=== PATIENT | female | born 1985 | race Caucasian/White ===

== ENCOUNTER 2018-09-24 10:38 | Emergency (ER) | payer MEDICAID, OTHER ==
[2014-05-06 20:03] VITALS: BMI 41.1
[2018-09-24 12:09] LABS: SQUAMOUS EPITHIAL 2 /hpf (0-5); URINE BACTERIA OCC (<OCC); URINE BILIRUBIN NEGATIVE (NEGATIVE); URINE BLOOD 1+ (NEGATIVE); URINE CLARITY Clear (Clear); URINE COLOR Yellow (YELLOW); URINE GLUCOSE (UA) NORMAL (Normal); URINE LEUKOCYTE ESTERASE 1+ Leu/uL (Negative); URINE PROTEIN NEGATIVE (NEGATIVE); URINE UROBILINOGEN NORMAL mg/dL (0.2-1.0)
--- NOTE | 2018-09-24 13:01 | OBHP ---
Datetime: 09/24/2018 11:47 IP Adm Impression: , intrauterine ; No Active Labor; Intact Membranes IP Admit Plan: Observation/Evaluation Admit Comment, IP Provider: Ms. Pelayo is a 33 year old [id number] (5 terminations, 2 miscarriages) with an IUP at 33w5d by LMP with PRANAY 11/06/18 who presents for lower abdominal cramping since earlier this morning. Patient reports being constipated and had her last BM a week ago. Earlier this morning, patient was straining on the toilet and passed stool when these sharp pains began. She is unsure if these pains are from straining or from contractions. Patient reports the pain as sharp, on and off, and without radiation. Offers no other complaints at this time. Endorses movement, but denies v aginal bleeding and a gush of fluid per vagina, however states that for the past 2 days she feels he r underware wet on/off. Endorses mild shortness of breath but denies chest pain, dizziness, palpitati ons, dizziness. OB HX: 5 terminations, 2 miscarriages, 1 , 3 living children via DRAG DOWN Hx: LMP 01/30/18 Triad: 10 x regular x 5 days No history of HPV ovarian cysts or fibroids Paps have been normal per patient PMHx: denies PSHx: denies All: NKDA Social: Denies ETOH, tobacco and illicit drug use Fam hx: HTN, DM, cardiomyopathy in aunt, prostate CA in grandfather Meds: vitamins, stopped a week ago PE: see above A_P: 33 year old [id number] (5 terminations, 2 miscarriages) who presents at 33w5d likely with pains m ost likely secondary to constipation. Probable UTI NST reactive No UC's recorded or palpated Hx of delivery in the past - Observe - Evaluate with CEFM and TOCO for contractions - f/u UA - f/u BPP and measure CHESTER Patient seen, case reviewed and plan approved by Dr. Richardson. Rony Zeffren, PGY-1 Pt seen and examined with Dr. Yang and findings reviewed and agree with his POC Extremities - PN: Normal Abdomen - PN: Normal Back - PN: Normal Breast - PN: Not Done Lungs - PN: Normal Heart - PN: Normal Thyroid - PN: Not Done Neurologic - PN: Normal HEENT - PN: Normal General - PN: Normal Presentation-Admit: Vertex FHR - Baseline A Provider: 140 Membranes, Provider: Intact Comments, ACOG Physical Exam: Gen: AAOx3 in NAD, sitting up in mild discmfort in bed Cardio: RRR, no murmur appreciated Pulm: CTABL Abd: soft, nontender, fundal height 33 cm above pubic symphysis Ext: no calf tenderness, no erythema, mild swelling (Annotations: Data stored by CPN on behalf of user) Gestation - Est Wks by US: 34.1 Pool Provider: Negative Nitrazine Provider: Negative IP Hx Assessment: The History has been Reviewed and is Current EGA AdmitDate IP: 34.1 Vital Signs Provider: Reviewed; Within Normal Limits IP Chief Complaint: Signs/symptoms UTI; Maternal discomfort; evaluation NICHD Variability Prov Fetus A: Moderate 6-25bpm NICHD Accel Fetus A IP Provider: 10X10 FHR Category Provider Fetus A: Category I NICHD Decel Fetus A IP Provider: None Dilatation, Provider: 0 Effacement, Provider: 0
--- NOTE | 2018-09-24 14:15 | US ---
Indication: r/o active labor, measure CHESTER Comparison: None available Technique: Real-time ultrasound was performed through the pelvis. Findings: There is a single living fetus in cephalic presentation. Amniotic fluid volume is within normal limits. Posterior placenta. The placenta is not previa. There are no adnexal masses or cysts evident. Cervix length measures approximately 3.4 cm. The study was performed for emergent evaluation and the whole anatomic survey of the fetus was not performed. Measurements and calculations: Fetus has a composite sonographic age of 33 weeks 3 days. This calculation is based on the biparietal diameter, head circumference, abdominal circumference, and femur length. Estimated heart rate 137.2 beats per min. Estimated weight 2172 g. Amniotic fluid index: 12.9 cm, within normal limits. Biophysical profile: movements 2/2 breathing 2/2 tone 2/2 Amniotic fluid 2/2 Total score impression: /8 Impression: Single living fetus with a composite sonographic age of 33 weeks 3 days. Estimated heart rate 137.2 beats per min. Biophysical profile of 8 out of 8.
--- NOTE | 2018-09-24 16:13 | OBDCSUM ---
Datetime: 09/24/2018 14:43 Discharged to, Provider: Home Follow up at, Provider: Clinic Disch Instr Activity: Normal activity Disch Instr Diet: Regular Discharge Instructions, Provider: Routine instructions given Discharge Time: 09/24/2018 14:40 Follow up in weeks, Provider: Scheduled appointment Disch Referrals: None Disch Activity Restrictions: No exercising; No lifting; Minimize stair-climbing; No sexual activity; Nothing in vagina - [place], tampons, douche Discharge Comment, Provider: Ms. Pelayo is a 33 year old [id number] (5 terminations, 2 miscarriages) with an IUP at 33w5d by LMP with PRANAY 11/06/18 who presents for lower abdominal cramping since earlier this morning. Patient reports being constipated and had her last BM a week ago. Earlier this morning , patient was straining on the toilet and passed stool when these sharp pains began. She is unsure i f these pains are from straining or from contractions. Patient reports the pain as sharp, on and off, and without radiation. Offers no other complaints at this time. Endorses movement, but denies vaginal bleeding and a gush of fluid per vagina, however states that for the past 2 days she feels h er underware wet on/off. Endorses mild shortness of breath but denies chest pain, dizziness, palpitat ions, dizziness. 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 Probable UTI and received a dose of Rocephin IV NST reactive No UC's recorded or palpated Hx of delivery in the past - Observe - Evaluate with CEFM and TOCO for contractions - f/u UA suggestive of UTI - f/u BPP and measure CHESTER CHESTER WNL, GA c/w EDC of 11/06/18, BPP 03/25 D/c home witn instructions to increase po water intake and Fiber in diet. Rx for Macrobid 100 mg po BID x 5 days Advised to get Magnesium Citrate and drinks half of a bottle today and repeat the other falf in 4 hrs if no adequate BM Also advised to take Citrate 100 mg po BID daily D/C home in Staable and Satisfactory condition Discharge Diagnosis Prov Other: Pelvic pains Symptomatic UTI Constipation
[2018-09-24 19:02] VITALS: BP 121/72; PULSE 88; RESP 18; O2SAT 98
== END 2018-09-24 14:40 | disposition home or self-care (01) ==
LOC: C.EROB 10:38
DX: O23.43 Unspecified infection of urinary tract in pregnancy, third trimester (principal); O99.613 Diseases of the digestive system complicating pregnancy, third trimester; K59.00 Constipation, unspecified; R10.2 Pelvic and perineal pain; Z3A.33 33 weeks gestation of pregnancy
CPT/HCPCS: 76815; 76818; 81001; 96374; 99284; J0696

== ENCOUNTER 2018-11-04 22:40 | Inpatient (IN) | payer OTHER ==
[2018-11-04 23:12] VITALS: BMI 35.6
[2018-11-04] MEDS ORDERED: Lactated Ringer's 1,000 ML IV ONE (23:14)
[2018-11-05 00:23] LABS: BASO % 0.3 % (0.0-2.0); EOS # 0.1 K/uL (0.0-0.7); HEMOGLOBIN 12.3 g/dL (11.0-16.0); LYMPH # 3.2 K/uL (1.0-4.3); LYMPH % 28.3 % (20.0-40.0); MEAN CELL VOLUME 79.4 fL (81.0-99.0); MEAN CORPUSCULAR HEMOGLOBIN 26.3 pg (27.0-31.0); MEAN CORPUSCULAR HGB CONC 33.1 g/dL (33.0-37.0); MEAN PLATELET VOLUME 9.5 fL (7.2-11.7); MONO # 0.7 K/uL (0.0-0.8); MONO % 6.4 % (0.0-10.0); NEUT # 7.2 K/uL (1.8-7.0); RBC 4.66 Mil/uL (3.80-5.20); RED CELL DISTRIBUTION WIDTH 13.8 % (11.5-14.5); WHITE BLOOD COUNT 11.2 K/uL (4.8-10.8)
--- NOTE | 2018-11-05 00:28 | OBHP ---
Datetime: 11/04/2018 23:30 IP Adm Impression: Term, intrauterine ; Active labor; Ruptured Membranes IP Admit Plan: Admit to unit; Initiate labor protocol Admit Comment, IP Provider: 33 yo female with an IUP at 40 weeks and presented in active l abor, wanting to push and stated that her water broke at home prior to coming in. Denies any PNC issu es. PMHx and PSHx Negative NKDA OB Hx 2 Term pregnancies and one with twins, 7 TOP Social Hx Denies x 3 NKDA A/P Term in active labor and SROM at home Pt proceeded to have a Precipitous vaginal delivery few minutes after arrival See Delivery note Pelvic Type - PN: Adequate Extremities - PN: Normal Abdomen - PN: Normal Back - PN: Normal Breast - PN: Normal Lungs - PN: Normal Heart - PN: Normal Thyroid - PN: Normal Neurologic - PN: Normal HEENT - PN: Normal General - PN: Normal Presentation-Admit: Vertex FHR - Baseline A Provider: 130 Amniotic Fluid Color, Provider: Clear Membranes, Provider: Ruptured Contraction Comments Provider: 2-3 Gestation - Est Wks by US: 40.0 Pool Provider: Positive IP Hx Assessment: The History has been Reviewed and is Current EGA AdmitDate IP: 40.0 Vital Signs Provider: Reviewed; Within Normal Limits IP Chief Complaint: Uterine contractions; Suspected ruptured membranes; Maternal discomfort Dilatation, Provider: 6 Effacement, Provider: 80 Station, Provider: 0 Genitourinary Exam: Normal DTRs - PN: Normal
--- NOTE | 2018-11-05 00:35 | OBDS ---
DELIVERY PERSONNEL Delivery Doctor: Didi Richardson DO Scrub Nurse: Jesusita Lopez OBT Monument Letterer: Deanne Mcmanus RN MATERNAL INFORMATION Delivery Anesthesia: None Medications in Delivery: Pitocin 20 units Estimated Blood Loss (ml): 200 Placenta Cultured: No Maternal Complications: None RN Comments: live baby boy born via Provider Comments: Precipitous Vaginal delivery of a viable male from ESMER position and over an intact perineum. Apgars 9_9 and BW 8lbs, 2oz. Cord pH and cord blood obtained and sent Placenta somplete and spontaneous delivered with 3 Vessel cord EBL 200 mls Pt and both tolerated the procedure well and remained in Stable and Satisfactory condition LABOR SUMMARY EDC: 11/04/2018 00:00 No. Babies in Womb: 1 Attempted: No Labor Anesthesia: None LABOR INFORMATION Reason for Induction: Not Applicable Onset of Labor: 11/04/2018 22:00 Oxytocin: N/A Steroids Given: None Reason Steroids Not Administered: Not Applicable MEMBRANES Membranes Rupture Method: Spontaneous Rupture of Membranes: 11/04/2018 21:30 Length of Rupture (hrs): 1.47 STAGES OF LABOR Stage 3 hrs: 0 Stage 3 min: 5 Total Time in Labor hrs: 1 Total Time in Labor min: 3 VAGINAL DELIVERY Episiotomy: None Laceration Extension: N/A Laceration Type: None Laceration Repair: Not Applicable Initial Vag Sponge Count: 10 Final Vag Sponge Count: 10 Initial Vag Sharps Count: 0 Final Vag Sharps Count: 0 Sponge Count Correct: Yes; Vaginal Sweep Performed Sharps Count Correct: Yes BABY A INFORMATION Infant Delivery Date/Time: 11/04/2018 22:58 Method of Delivery: Vaginal Born in Route : No : N/A Forceps: N/A Vacuum Extraction: N/A Shoulder Dystocia : No SHOULDER DYSTOCIA BABY A Delivery Date/Time: 11/04/2018 22:58 PRESENTATION/POSITION BABY A Presentation: Cephalic Cephalic Presentation: Vertex Breech Presentation: N/A PLACENTA INFORMATION BABY A Placenta Delivery Time : 11/04/2018 23:03 Placenta Method of Delivery: Spontaneous Placenta Status: Retained SCORES BABY A Heart Rate 1 min: >100 bpm Resp Effort 1 min: Good Cry Reflex Irritability 1 min: Cough or Sneeze or Pulls Away Muscle Tone 1 min: Active Motion Color 1 min: Body [place], Extremities Blue SCORE 1 MIN: 9 Heart Rate 5 min: >100 bpm Resp Effort 5 min: Good Cry Reflex Irritability 5 min: Cough or Sneeze or Pulls Away Muscle Tone 5 min: Active Motion Color 5 min: Body [place], Extremities Blue SCORE 5 MIN: 9 INFANT INFORMATION BABY A Gestational Age at Delivery: 40.0 Gestational Status: Term Infant Outcome : Liveborn Condition : Stable Sex: Male IDENTIFICATION/MEDS BABY A ID Band Number: [id number] ID Band Location: Left Leg; Left Arm Sensor Applied: Yes Sensor Number: [id number] Sensor Location : Cord Clamp WEIGHT/LENGTH BABY A Infant Birthweight (gms): 3700 Weight (lb): 8 Infant Weight (oz): 2 Length Inches: 20.50 Length cms: 52.1 CORD INFORMATION BABY A No. Cord Vessels: 3 Nuchal Cord : N/A Cord Blood Taken: Yes Infant Suction: None ASSESSMENT BABY A Complications: None Physical Findings at Delivery: Within Normal Limits Respirations: Appears Normal Stores Assistant/ALS Called : No Care By: AMY Roche Transferred To: Remains with Mother
[2018-11-05 00:42] LABS: ALB/GLOB RATIO 1.2 (1.0-2.1); ALBUMIN 3.8 g/dL (3.5-5.0); AST/SGOT 27 U/L (14-36); BLOOD UREA NITROGEN 7 mg/dL (7-17); CALCIUM 9.4 mg/dl (8.6-10.4); GFR NON-AFRICAN AMERICAN > 60
[2018-11-05] MEDS ORDERED: Oxycodone/Acetaminophen 5/325 mg Tab PO PRN ×2 (00:47)
[2018-11-05 01:12] LABS: HEPATITIS B SURFACE AG Negative (NEGATIVE)
[2018-11-05 01:14] LABS: ALT/SGPT < 6 U/L (9-52)
[2018-11-05 03:41] LABS: SQUAMOUS EPITHIAL 3 /hpf (0-5); URINE BILIRUBIN NEGATIVE (NEGATIVE); URINE BLOOD 2+ (NEGATIVE); URINE CLARITY Hazy (Clear); URINE COLOR Red (YELLOW); URINE GLUCOSE (UA) 3+ mg/dL (Normal); URINE LEUKOCYTE ESTERASE NEG Leu/uL (Negative); URINE PROTEIN 2+ mg/dL (NEGATIVE); URINE UROBILINOGEN NORMAL mg/dL (0.2-1.0)
[2018-11-05 08:06] VITALS: O2SAT 99
[2018-11-05] MEDS: Multiple Vitamins Tab PO SCH (09:13)
[2018-11-05 16:55] LABS: BASO # 0.1 K/uL (0.0-0.2); BASO % 0.7 % (0.0-2.0); EOS # 0.2 K/uL (0.0-0.7); EOS % 1.3 % (0.0-4.0); HEMOGLOBIN 10.9 g/dL (11.0-16.0); LYMPH # 2.7 K/uL (1.0-4.3); LYMPH % 23.1 % (20.0-40.0); MEAN CELL VOLUME 77.8 fL (81.0-99.0); MEAN CORPUSCULAR HEMOGLOBIN 26.1 pg (27.0-31.0); MEAN CORPUSCULAR HGB CONC 33.5 g/dL (33.0-37.0); MONO # 0.9 K/uL (0.0-0.8); MONO % 7.5 % (0.0-10.0); NEUT % 67.4 % (50.0-75.0); NRBC % 0.1 % (0.0-2.0); RBC 4.18 Mil/uL (3.80-5.20); RED CELL DISTRIBUTION WIDTH 14.1 % (11.5-14.5); WHITE BLOOD COUNT 11.9 K/uL (4.8-10.8)
--- NOTE | 2018-11-05 22:36 | OBPPN ---
Datetime: 11/05/2018 12:32 PP Pain Prov: Within normal limits PP Nausea Prov: Denies PP Flatus Prov: No PP BM Prov: No PP Breasts Prov: Normal PP Heart Prov: Normal PP Lungs Prov: Normal PP Abdomen/Uterus Prov: Normal PP Vulva/Perineum Prov: Not Done PP CVA Tenderness Prov: Not Done PP Extremities Prov: Normal PP C/S Incision Prov: Not Applicable PP Progress Prov: Normal PP Comments Phys Exam Prov: Gen: WDWN, NAD Neuro: A_Ox3 CV: RRR, S1/S2 present Pulm: CTA b/l u/ll Abd: Soft, non distended. Fundus at 1 FB below umbilicus. Uterus firm, nontender Ext: Trace edema PP Impression Prov: Normal progression PP Plan Prov: Continue present management; consult PP Progress Note Prov: Pt seen and examined at bedside this am. Pt reports minimal pain that has bee n controlled with acetaminophen only. She has ambulated in her room, however has not had flatus or pa ssed bowel. She has void and noted hematuria pink urine that has decreased from red yesterday. She no wang minimal lochia. She has attempted breast feeding, however reports baby has had trouble latching. Pt has not been seen yet by customer consultant. She denies fevers, chills, headache, dizziness, vi migue changes, chest pain, palpitations, shortness of breath, nausea, vomiting, dysuria. VS: T: 97 BP: 109/62 P: 77 Gen: WDWN, NAD Neuro: A_Ox3, no focal deficits CV: RRR, S1/S2 present Pulm: CTA b/l u/l lobes Abd: Soft, non distended. Uterus firm, nontender, fundus at 1 FB below umbilicus. Ext: Trace edema Labs: (11/04) 11.2>12.3/37<239 HepBsAg: (-) HIV 1_2: (-) RPR pending Assessment: 33 y/o PPD1 s/p of 8lb 2 oz viable male . Pt is progressing appropriately for post- care Plan: - Encourage hydration/ambulation/ - Continue analgesics with ibuprofen/acetaminophen/percocet - Continue regular diet - Continue vitamins/iron - Consult customer consultant - Pt would like baby to be circumcised. Apply topical emla ointment prior to circumcision - Continue routine care Barb Kevin PGY1 Attending Note: patient seen, evaluated and examined by me with the resident. I agree with the abo ve as documented Vital Signs Provider PP: Reviewed; Within Normal Limits
[2018-11-06 04:04] VITALS: BP 110/70; TEMP 98.2
[2018-11-06 08:44] LABS: BASO % 0.4 % (0.0-2.0); EOS # 0.2 K/uL (0.0-0.7); HEMOGLOBIN 10.8 g/dL (11.0-16.0); LYMPH # 2.9 K/uL (1.0-4.3); LYMPH % 30.3 % (20.0-40.0); MEAN CELL VOLUME 79.7 fL (81.0-99.0); MEAN CORPUSCULAR HEMOGLOBIN 27.3 pg (27.0-31.0); MEAN CORPUSCULAR HGB CONC 34.2 g/dL (33.0-37.0); MEAN PLATELET VOLUME 9.2 fL (7.2-11.7); MONO # 0.5 K/uL (0.0-0.8); MONO % 4.9 % (0.0-10.0); NEUT % 62.4 % (50.0-75.0); NRBC % 0.1 % (0.0-2.0); RBC 3.94 Mil/uL (3.80-5.20); WHITE BLOOD COUNT 9.7 K/uL (4.8-10.8)
[2018-11-06] MEDS: Multiple Vitamins Tab PO SCH (09:27)
[2018-11-06] MEDS ORDERED: Influenza Vaccine 60 mcg/0.5 mL SYR (4YR UP) IM ONE (13:45)
--- NOTE | 2018-11-06 13:54 | OBDCSUM ---
Datetime: 11/06/2018 13:04 Discharged to, Provider: Home Disch Instr Activity: Normal activity Disch Instr Diet: Regular Discharge Time: 11/06/2018 13:30 Disch Activity Restrictions: No sexual activity; Nothing in vagina - [place], tampons, douche Datetime: 11/06/2018 12:03 Discharged to, Provider: Home Follow up at, Provider: LAURIE Disch Instr Activity: Normal activity Disch Instr Diet: Regular Discharge Diet restrict Prov: none Discharge Time: 11/06/2018 12:30 Follow up in weeks, Provider: December 16, 2018 Disch Referrals: None Disch Activity Restrictions: No exercising; No lifting; No driving; Minimize walking; Minimize stair -climbing; No sexual activity; Nothing in vagina - [place], tampons, douche Datetime: 11/06/2018 10:30 Discharged to, Provider: Home Follow up at, Provider: Berkley Rosario MD Disch Instr Activity: Normal activity Disch Instr Diet: Regular Discharge Instructions, Provider: Routine instructions given Discharge Diagnosis, Provider: Term Delivered Discharge Time: 11/06/2018 12:30 Follow up in weeks, Provider: Dec 16 2018 Disch Referrals: None Contraception discussed, Prov: Yes Disch Activity Restrictions: No exercising; Minimize stair-climbing; No sexual activity; Nothing in vagina - [place], tampons, douche Discharge Comment, Provider: Patient seen and examined at bedside this morning. No acute events overnight as per patient and nu rsing staff. She reports minimal pain that has been controlled with acetaminophen and motrin. She is ambulating with no issues. She admits to passing flatus and had a bowel movement. She notes minimal l ochia. Baby is with good latch. She denies fevers, chills, headache, dizziness, chest p ain, palpitations, shortness of breath, nausea, vomiting, or dysuria. VS: T: 98.2 BP: 110/70 P: 77 O2: 100% Gen: AAO X3, NAD CV: RRR, S1/S2 present Pulm: CTA b/l Abd: Soft, non-distended. Uterus firm, nontender, fundus at 1 finger breadth below umbilicus. Ext: Trace edema Assessment: 33 y/o PPD1 s/p PPD #2. Patient is progressing appropriately for post- care an d discharge planned for today. Plan: - Stable, afebrile - Pain control with Ibuprofen and rx for Motrin given - Encourage ambulation, hydration and - Continue routine care - Instructed patient to not have sexual intercourse, douching, and no heavy lifting for 6 weeks - Follow up with control equipment electrician Patient seen and plan discussed with attending, Dr. Dylan Youssef, PGY-1 Pt seen and examined with Dr. Rutherford and fully discussed and agreed with his findings and POC. Contraception after Delivery: IUD; Tubal Ligation
[2018-11-06 19:25] VITALS: PULSE 83; RESP 18
== END 2018-11-06 15:23 | disposition home or self-care (01) | DRG 373 ==
LOC: C.EROB 22:40 → C.4D 22:52 → C.4M 11-05 00:25
PROVIDERS: ADMIT Obstetrics & Gynecology; ATTEND Obstetrics & Gynecology
PROC: 10E0XZZ Delivery of Products of Conception, External Approach (ICD-10-PCS; principal; 2018-11-04)
DX: O62.3 Precipitate labor (principal); Z3A.40 40 weeks gestation of pregnancy; Z37.0 Single live birth